=== PATIENT | female | born 1980 | race Caucasian/White ===

== ENCOUNTER 2017-05-28 00:50 | Outpatient (CLI) | payer OTHER ==
[2017-05-28 03:16] VITALS: BP 112/71
== END 2017-05-28 03:52 | disposition home or self-care (01) ==
LOC: TRG 00:50
PROVIDERS: ATTEND Obstetrics & Gynecology
DX: O09.523 Supervision of elderly multigravida, third trimester (principal); O26.893 Other specified pregnancy related conditions, third trimester; R10.9 Unspecified abdominal pain; R42 Dizziness and giddiness; M79.89 Other specified soft tissue disorders; Z3A.38 38 weeks gestation of pregnancy
CPT/HCPCS: 59025

== ENCOUNTER 2017-05-29 20:16 | Outpatient (CLI) | payer OTHER ==
[2017-05-29 22:55] VITALS: BP 110/59
[2017-05-29] MEDS ORDERED: VISTARIL PO ONE (23:13)
== END 2017-05-29 23:26 | disposition home or self-care (01) ==
LOC: TRG 20:16
PROVIDERS: ATTEND Obstetrics & Gynecology
DX: O09.523 Supervision of elderly multigravida, third trimester (principal); O62.9 Abnormality of forces of labor, unspecified; Z3A.37 37 weeks gestation of pregnancy
CPT/HCPCS: Q0177

== ENCOUNTER 2017-06-01 05:49 | Inpatient (IN) | payer OTHER ==
[2017-06-01] MEDS ORDERED: XYLOCAINE 2% INFILTRATI ONE (07:11)
[2017-06-01] MEDS ORDERED: MINERAL OIL PO PRN (07:11)
[2017-06-01] MEDS ORDERED: ZOFRAN IV PRN ×2 (07:11→16:33)
[2017-06-01] MEDS ORDERED: ePHEDrine SULFATE IV PRN (07:11)
[2017-06-01] MEDS ORDERED: BRETHINE IVP PRN (07:11)
[2017-06-01] MEDS ORDERED: BRETHINE SUB-Q PRN (07:11)
[2017-06-01] MEDS ORDERED: SUBLIMAZE IV PRN ×2 (07:11→07:45)
--- NOTE | 2017-06-01 07:11 | History and Physical Report ---
History of Present Illness Date of examination: 06/01/17 Date of admission: 06/01/17 06:28 Chief complaint: Ruptured membranes at ~ 4:50 AM History of present illness: 36-year-old at 37+4 weeks presents with ruptured membranes, she is alive cycle [employer] patient. Vera care has been unremarkable per patient, she is GBS negative Past History Past Medical History: no pertinent history Past Surgical History: no surgical history CARDIAC TECH History: denies: chlamydia, gonorrhea, hepatitis B, hepatitis C, herpes, HIV , syphilis, trichomonas Social history: single, full code. denies: smoking, alcohol abuse, prescription drug abuse, IV drug use - Obstetrical History Expected Date of Delivery: 06/18/17 Actual Gestation: 37 Week(s) 4 Day(s) : 8 Para: 5 Medications and Allergies Allergies Allergy/AdvReac Type Severity Reaction Status Date / Time No Known Allergies Allergy Verified 04/17/15 22:24 Home Medications Medication Instructions Recorded Confirmed Last Taken Type Ampicillin [Polycillin] 500 mg PO Q6H #28 capsule 04/21/15 Unknown Rx Ferrous Sulfate [Feosol 325 MG tab] 325 mg PO BID #60 tablet 04/21/15 Unknown Rx metroNIDAZOLE [Flagyl] 500 mg PO Q12HR #14 tab 04/21/15 Unknown Rx Review of Systems Constitutional: no fever, no chills, no fatigue, no chronic pain Cardiovascular: no chest pain, no syncope, no lightheadedness, no shortness of breath, no dyspnea on exertion, no high blood pressure Respiratory: no cough, no cough with sputum, no shortness of breath, no dyspnea on exertion Gastrointestinal: no abdominal pain, no nausea, no vomiting, no heartburn, no excessive gas Genitourinary: leakage of fluid, contractions, no vaginal bleeding, no vaginal discharge - Vital Signs Vital signs: Vital Signs Pulse Pulse Ox 70 98 06/01/17 06:08 06/01/17 06:08 Temp Pulse Resp BP Pulse Ox 98.1 F 81 18 98 06/01/17 06:11 06/01/17 06:48 06/01/17 06:11 06/01/17 06:48 - Physical Exam Cardiovascular: Regular rate, Normal S1, Normal S2 Lungs: Positive: Clear to auscultation, Normal air movement Abdomen: Positive: normal appearance, soft. Negative: distention, tenderness, guarding, rigidity Genitourinary (Female): Positive: normal external genitalia Vulva: both: normal Uterus: Positive: enlarged (EFW ~ 3600) Adnexa: both: normal Extremities: Positive: normal - Obstetrical FHR: category 1 Cervical Dilatation: 3 Results All other labs normal. Assessment and Plan A: 36-year-old at 37+4 weeks with ruptured membranes -Cat 1 tracing P: -Admit -Routine labs Epidural prn -Pit per protocol -Anticipate - Patient Problems (1) 37 weeks gestation of Current Visit: Yes Status: Acute (2) Rupture of membranes with clear amniotic fluid Current Visit: Yes Status: Acute (3) Grand multipara Current Visit: Yes Status: Acute
[2017-06-01] MEDS ORDERED: PITOCin/NS 20 UNIT/1000ML DRIP 20 UNITS/1,000 ML BAG IV SCH (08:00)
[2017-06-01] MEDS ORDERED: PITOCin/NS 30 UNIT/500ML 30 UNITS/500 ML BAG IV SCH ×2 (08:00)
[2017-06-01] MEDS: LACTATED RINGERS 1,000 ML IV SCH ×2 (08:30→09:38)
[2017-06-01 09:07] LABS: Hemoglobin 11.8 gm/dl (10.1-14.3); Mean Corpuscular HGB Conc 34 % (30-34); Mean Corpuscular Hemoglobin 30 pg (28-32); Mean Corpuscular Volume 90 fl (79-97); Platelet Count 215 K/mm3 (140-440); Red Blood Count 3.89 M/mm3 (3.65-5.03); Red Cell Distribution Width 13.3 % (13.2-15.2)
[2017-06-01] MEDS ORDERED: NARCAN 2 MG/2 ML IV PRN (10:47)
[2017-06-01] MEDS ORDERED: fentaNYL-BUPIV 2 MCG/ML-0.125% 200 MCG/100 ML BAG EPIDURAL SCH (11:00)
--- NOTE | 2017-06-01 11:36 | Anesthesia Consultation ---
Anesthesia Consult and Med Hx Date of service: 06/01/17 - Airway ROM Head & Neck: Adequate Mental/Hyoid Distance: Adequate Intubation Access Assessment: Probably Good - Pre-Operative Health Status ASA Pre-Surgery Classification: ASA2, Emergency Proposed Anesthetic Plan: Epidural, Spinal - Pulmonary Hx Asthma: No - Cardiovascular System Hx Hypertension: No - Central Nervous System Hx Seizures: No Hx Psychiatric Problems: No - Endocrine Hx Renal Disease: No Hx Hypothyroidism: No Hx Hyperthyroidism: No - Hematic Hx Anemia: Yes (IRON BID) Hx Sickle Cell Disease: No - Other Systems Hx Alcohol Use: No
[2017-06-01] MEDS ORDERED: TYLENOL PO PRN (16:33)
[2017-06-01] MEDS ORDERED: BENADRYL PO PRN (16:33)
[2017-06-01] MEDS ORDERED: LANSINOH TP PRN (16:33)
[2017-06-01] MEDS ORDERED: MILK OF MAGNESIA PO PRN (16:33)
[2017-06-01] MEDS ORDERED: DULCOLAX PR PRN (16:33)
[2017-06-01] MEDS ORDERED: TUCKS PAD TP PRN (16:33)
[2017-06-01] MEDS ORDERED: PHENERGAN PO PRN (16:33)
--- NOTE | 2017-06-01 16:46 | Procedure Note ---
OB Delivery Note - Delivery Date of Delivery: 06/01/17 (1603) Surgeon: DAQUAN SANZ (FANNIE) Estimated blood loss: other (50cc) - Vaginal Delivery presentation: vertex Delivery position: OA Intrapartum events: none Delivery induction: none Delivery augmentation: pitocin Delivery monitor: external FHT, external uterine Route of delivery: Delivery placenta: spontaneous (Hernandez) Delivery cord: nuchal cord (x1 loose) Episiotomy: none Delivery laceration: none Anesthesia: epidural Delivery comments: viable male SANDRA position, loose nuchal cord x1 delivered intact via somersault maneuver over intact perineum at 16:03. to mothers abdomen. Spontaneous cry. Delayed cord clamping. cord cut by FOB. Spontaneous hernandez delivery of intact placenta at 1625. 3VC. No tears or lacerations noted. FF@U ( Irregular, nodule, Fibroid feeling). scant bleeding noted. EBL 50cc. Infant and mother left in stable condition in L&D. - A at 1 minute: 8 at 5 minutes: 9 Gender: Male (3685 grams, 8lbs 1.9oz, 21")
[2017-06-01] MEDS ORDERED: SODIUM CHLORIDE FLUSH SYRINGE 10 ML IV NR (17:00)
[2017-06-01] MEDS: MOTRIN PO SCH (21:39)
[2017-06-02] MEDS: NORCO 5/325 PO PRN ×2 (01:48→09:21)
[2017-06-02] MEDS ORDERED: M-M-R II VACCINE SUB-Q ONE (06:00)
[2017-06-02] MEDS ORDERED: BOOSTRIX IM ONE ×2 (06:00→17:15)
[2017-06-02 06:13] LABS: Hematocrit 33.8 % (30.3-42.9); Hemoglobin 11.4 gm/dl (10.1-14.3)
[2017-06-02] MEDS: MOTRIN PO SCH ×3 (06:21→18:31)
--- NOTE | 2017-06-02 15:40 | Progress Note ---
Assessment and Plan A: Day 1, Stable P: Routine care Plan discharge today Subjective - Subjective Date of service: 06/02/17 Principal diagnosis: Day 1 Patient reports: appetite normal, voiding normally, pain well controlled, ambulating normally [place]: doing well, bottle feeding Objective - Vital Signs Latest vital signs: Vital Signs Temp Pulse Resp BP BP Pulse Ox 06/02/17 13:04 18 06/02/17 10:01 84 20 105/58 97 06/02/17 09:21 18 06/02/17 03:58 98.1 F 78 18 103/55 06/02/17 00:20 97.8 F 80 18 97/54 06/01/17 20:56 99.4 F 98 H 18 102/60 06/01/17 18:02 118 H 109/53 06/01/17 17:47 91 H 124/61 06/01/17 17:32 103 H 132/63 06/01/17 17:17 100 H 128/61 06/01/17 17:02 103 H 125/71 06/01/17 16:47 93 H 122/69 06/01/17 16:32 93 H 109/63 06/01/17 16:08 127 H 131/80 06/01/17 16:06 94 Intake and Output 06/01/17 06/02/17 06/02/17 23:59 07:59 15:59 Intake Total 120 180 120 Output Total 300 600 Balance -180 180 -480 Intake: Oral 120 Intake, Free Water 120 180 Output: Urine 300 600 Void 300 600 Other: Total, Intake Amount 120 Total, Output Amount 300 600 # Voids Void 250 2 Estimated Blood Loss 50 - Exam Breasts: Present: deferred Cardiovascular: Present: Regular rate Lungs: Present: Clear to auscultation Abdomen: Present: normal appearance, soft Vulva: both: normal Uterus: Present: normal, firm, fundal height below umbilicus Extremities: Present: normal Deep Tendon Reflex Grade: Normal +2
--- NOTE | 2017-06-02 15:42 | Discharge Summary ---
Providers - Providers Date of Admission: 06/01/17 06:28 Date of discharge: 06/02/17 Attending physician: TITI ESQUEDA MD Primary care physician: TITI ESQUEDA MD Hospitalization Reason for admission: active labor, IUP at term Delivery: Episiotomy: none Laceration: none Other procedures: none complications: none Discharge diagnosis: IUP at term delivered [place] baby: male Condition at discharge: Good Disposition: DC-01 TO HOME OR SELFCARE Plan - Provider Discharge Summary Activity: routine, no sex for 6 weeks, no heavy lifting 4 weeks, no strenuous exercise Diet: routine Instructions: routine Additional instructions: [] Smoking cessation referral if applicable(refer to patient education folder for contact #) [] Refer to [facility] Booklet Call your doctor immediately for: * Fever > 100.5 * Heavy vaginal bleeding ( >1 pad per hour) * Severe persistent headache * Shortness of breath * Reddened, hot, painful area to leg or breast * Drainage or odor from incision. * Keep incision clean and dry at all times and follow doctor's instructions regarding bathing/showering - Follow up plan Follow up: CHRISTIANO PETERS CNM [Advanced Practice Nurse] - 6 Weeks
[2017-06-02 22:04] VITALS: BP 107/68
== END 2017-06-02 20:30 | disposition home or self-care (01) | DRG 775 ==
LOC: TRG 05:49 → LD 06:28 → OB 21:05
PROVIDERS: ADMIT Obstetrics & Gynecology; ATTEND Obstetrics & Gynecology
PROC: 3E0234Z Introduction of Serum, Toxoid and Vaccine into Muscle, Percutaneous Approach (ICD-10-PCS; principal; 2017-06-01)
PROC: 10E0XZZ Delivery of Products of Conception, External Approach (ICD-10-PCS; 2017-06-01)
PROC: 3E0R3BZ Introduction of Anesthetic Agent into Spinal Canal, Percutaneous Approach (ICD-10-PCS; 2017-06-01)
PROC: 00HU33Z Insertion of Infusion Device into Spinal Canal, Percutaneous Approach (ICD-10-PCS; 2017-06-01)
DX: O69.81X0 Labor and delivery complicated by cord around neck, without compression, not applicable or unspecified (principal); Z23 Encounter for immunization; O99.02 Anemia complicating childbirth; D64.9 Anemia, unspecified; Z3A.37 37 weeks gestation of pregnancy; Z37.0 Single live birth
CPT/HCPCS: 36415; 85014; 85018; 85027; 86592; 86850; 86900; 86901; 90471; J2590; J3010; J7120